=== PATIENT | female | born 1980 | race Caucasian/White ===

== ENCOUNTER 2018-02-15 20:51 | Emergency (ER) | payer SELFPAY ==
[2018-02-15 22:06] LABS: #Basophils 0.1 thou/uL (0.0-0.2); #Eosinphils 0.2 thou/uL (0.0-0.7); #Lymphocytes 2.8 thou/uL (1.20-3.40); #Monocytes 0.6 thou/uL (0.11-0.59); #Neutrophils 7.6 thou/uL (1.40-6.50); %Basophils 0.7 % (0.0-1.0); %Eosinophils 1.4 % (0.0-10.0); %Lymphocytes 24.8 % (21.0-51.0); %Monocytes 4.9 % (0.0-10.0); %Neutrophils 68.2 % (42.0-75.0); Mean Corpuscular HGB CONC 32.7 g/dL (32.0-36.0); Mean Corpuscular Volume 82.5 fL (78.0-98.0); Mean Platelet Volume 8.2 fL (7.4-10.4); Platelet Count 242 thou/uL (130-400); Red Blood Cell (RBC) Count 4.79 mill/uL (4.20-5.40); White Blood Cell (WBC) Count 11.2 thou/uL (4.8-10.8)
[2018-02-15 22:17] LABS: Bilirubin Negative (Negative); Blood, Urine Small (Negative); Clarity CLEAR (Clear); Glucose, Urine (Dipstick) Negative (Negative); Leukocyte Negative (Negative); Nitrite Negative (Negative); Protein, Urine (Dipstick) Negative (Neg-Trace); Specific Gravity, Urine 1.005 (1.002-1.036); Urobilinogen 0.2 mg/dL (0.2-1.0); pH, Urine 5.5 (5.0-9.0)
[2018-02-15 22:20] LABS: Bacteria/HPF None Seen HPF (None Seen); Hyaline Casts/LPF 0-3 HYALINE CAST LPF (0-3 Hyaline); Pathc Cast-AUWi Flag 0.14 (0-2.49); Squamous Epithelial 0-3 HPF (0-3); WBC/HPF None Seen HPF (0-3)
== END 2018-02-15 23:03 | disposition home or self-care (01) ==
LOC: ERS 20:51
DX: O20.9 Hemorrhage in early pregnancy, unspecified (principal); O99.331 Smoking (tobacco) complicating pregnancy, first trimester; F17.210 Nicotine dependence, cigarettes, uncomplicated; Z3A.11 11 weeks gestation of pregnancy
CPT/HCPCS: 36415; 81003; 81015; 84702; 85025; 86900; 86901

== ENCOUNTER 2018-04-21 07:51 | Outpatient (CLI) | payer OTHER ==
--- NOTE | 2018-04-21 09:54 | ULT ---
OB ULTRASOUND: History: 37-year-old female with history of high risk . Technique: Multiple longitudinal and transverse images of an intrauterine obtained using a multihertz curvilinear transducer. FINDINGS: Real-time, color flow, and spectral waveform doppler analysis demonstrates a viable intrauterine preg pastora with a fetus in breech presentation. Placenta is posterior. Cervical length measures 4.2 cm. Cardiac activity measures 133 beats/minute. anatomic survey is unremarkable. Intracranial structures, cerebellum, four-chamber heart, stoma ch, kidneys, cord insertion and urinary bladder are unremarkable. The lips, nose, upper and lower ext remities are grossly unremarkable. Three-vessel cord is seen. BIOMETRICS: BPD 47 mm 20 weeks 3 days HC 180 mm 20 weeks 3 days AC 155 mm 20 weeks 5 days FL 33 mm 20 weeks 2 days Composite age: 20 weeks 4 days. Estimated weight is 355 grams (+/- 52 grams). IMPRESSION: Viable IUP. POS: [facility]
== END 2018-04-21 07:52 | disposition home or self-care (01) ==
LOC: BICULT 07:51
PROVIDERS: ATTEND Family Medicine
DX: O09.522 Supervision of elderly multigravida, second trimester (principal); Z3A.20 20 weeks gestation of pregnancy
CPT/HCPCS: 76805

== ENCOUNTER 2018-08-17 10:14 | Inpatient (IN) | payer OTHER ==
[2018-08-17] MEDS ORDERED: CEFAZOLIN 2 GM in Premix Bag 1 BAG IVPB SCH (11:11)
[2018-08-17] MEDS ORDERED: Ondansetron PF 4 MG/2 ML Vial IVP PRN ×3 (11:11→15:43)
[2018-08-17] MEDS ORDERED: Lactated Ringer's 1,000 ML IV SCH ×2 (11:11→13:30)
[2018-08-17] MEDS ORDERED: Bicitra 30 ML UDCUP PO SCH (11:11)
[2018-08-17 11:34] LABS: Hemoglobin 12.1 g/dL (12.0-16.0); Mean Corpuscular HGB CONC 33.6 g/dL (32.0-36.0); Mean Corpuscular Hemoglobin 28.8 pg (27.0-31.0); Mean Corpuscular Volume 85.7 fL (78.0-98.0); Mean Platelet Volume 9.6 fL (7.4-10.4); Platelet Count 195 thou/uL (130-400); RBC Distribution Width 12.9 % (11.5-14.5)
[2018-08-17 11:37] VITALS: BMI 37.4
[2018-08-17] MEDS ORDERED: Oxytocin 10 UNITS/ML VIAL ONE (11:42)
[2018-08-17] MEDS ORDERED: Bicitra 30 ML UDCUP ONE (11:45)
[2018-08-17] MEDS ORDERED: PHENYLEPHRINE-NS 100 MCG/ML 10 ML SYRINGE ONE ×2 (11:48→15:18)
[2018-08-17] MEDS ORDERED: Zolpidem Tartrate 5 MG TAB PO PRN (11:49)
[2018-08-17] MEDS ORDERED: Naloxone HCl 0.4 mg/ml Vial IV PRN (11:49)
[2018-08-17] MEDS ORDERED: L&D-Morphine 4 MG/ML VIAL SLOW IVP PRN (11:49)
[2018-08-17] MEDS ORDERED: diphenhydrAMINE 25 MG CAP PO PRN ×2 (11:49→15:43)
[2018-08-17] MEDS ORDERED: Ondansetron HCl/PF 4 MG/2 ML Vial IVP PRN (11:49)
[2018-08-17] MEDS ORDERED: Meperidine HCl/PF 25 MG/ML VIAL SLOW IVP PRN (11:49)
[2018-08-17] MEDS ORDERED: diphenhydrAMINE 50 MG/ML VIAL IM PRN (11:49)
[2018-08-17] MEDS ORDERED: diphenhydrAMINE 50 MG/ML VIAL IVP PRN (11:49)
[2018-08-17] MEDS ORDERED: Promethazine HCl 25 MG/ML VIAL IM PRN (11:49)
[2018-08-17] MEDS ORDERED: HYDROmorphone 2 MG/ML VIAL SLOW IVP PRN (11:49)
[2018-08-17] MEDS ORDERED: Ketorolac Tromethamine 30 MG/ML VIAL IVP SCH (12:00)
[2018-08-17] MEDS ORDERED: Communication Order-Pharmacy FS SCH (12:00)
[2018-08-17 12:20] LABS: Syphilis Antibody Nonreactive (Nonreactive); Syphilis Antibody Index 0.05 S/CO (<1.00 Non-Reactive)
[2018-08-17 12:26] LABS: HBSAg Index 0.31 S/CO (0-0.99); Hep B Surf Ag Non-Reactive S/CO (NonReactive)
[2018-08-17] MEDS ORDERED: NS / Oxytocin 40 units/1000ml 1,000 ML IV PRN (13:21)
[2018-08-17] MEDS ORDERED: Oxytocin 10 UNITS/ML VIAL IVPB SCH (13:30)
[2018-08-17] MEDS ORDERED: Meperidine HCl/PF 25 MG/ML VIAL ONE (13:48)
[2018-08-17] MEDS: fentaNYL Citrate/PF 2,000 MCG in Sodium Chloride 0.9% 60 ML IV PRN (14:29)
[2018-08-17] MEDS ORDERED: Meperidine HCl/PF 25 MG/ML VIAL IM PRN (15:43)
[2018-08-17] MEDS ORDERED: HYDROcodone/Acetaminophen 5/325 mg Tablet PO PRN ×2 (15:43)
[2018-08-17] MEDS ORDERED: Bisacodyl 10 MG SUPP PR PRN (15:43)
[2018-08-17] MEDS ORDERED: Simethicone Chewable 80 MG TAB PO PRN (15:43)
[2018-08-17] MEDS ORDERED: Lanolin Ointment 7 GM TUBE TOP PRN (15:43)
[2018-08-17] MEDS ORDERED: NS / Oxytocin 40 units/1000ml 1,000 ML IV SCH (15:43)
[2018-08-17] MEDS: Docusate Calcium (SURFAK) 240 MG CAP PO SCH (21:00)
[2018-08-17] MEDS: Ferrous Sulfate 325 MG TAB PO SCH (21:00)
[2018-08-17] MEDS: Ibuprofen 800 MG TAB PO SCH (22:00)
--- NOTE | 2018-08-18 00:33 | OP ---
DATE OF PROCEDURE: 08/17/2018 PREOPERATIVE DIAGNOSES: 1. Term intrauterine . 2. Advanced maternal age. 3. Gestational diabetes mellitus. 4. Heavy tobacco abuse. 5. Previous section x3. 6. Grade 3 placenta on ultrasound. POSTOPERATIVE DIAGNOSES: 1. Term intrauterine . 2. Advanced maternal age. 3. Gestational diabetes mellitus. 4. Heavy tobacco abuse. 5. Previous section x3. 6. Grade 3 placenta on ultrasound. PROCEDURE PERFORMED: Repeat low cervical transverse section. CLINICAL DATA ABSTRACTOR: Dr. Pardo. ANESTHESIA: Spinal. DESCRIPTION OF PROCEDURE: After informed consent was obtained from the patient , she was taken to the operating room, where spinal anesthesia was administered. She was then prepped and draped in the usual sterile fashion. A Pfannenstiel incision was created with a #10 scalpel blade and carried down to the fascia, which was nicked in the midline. Skin bleeders were coagulated with Bovie. The fascial incision was extended transversely with Pavon scissors. The superior fascial segments were grasped with Kochers and elevated, and the underlying rectus muscles were dissected free, first bluntly and then sharply with Pavon scissors. This was repeated with the inferior fascial segment. The rectus muscles were grasped in the midline with a Odell and elevated and then incised in the midline with Pavon scissors. The peritoneum was entered bluntly. The bladder blade was inserted. The vesicouterine serosa was grasped with a hemostat and elevated, and a bladder flap was created with blunt and sharp dissection with the Metzenbaum scissors. Bladder blade was then re-inserted. The uterus was entered in a low transverse fashion with a clean # 10 scalpel blade. Clear amniotic fluid was encountered. vertex was delivered on to the operative field. The remainder of the infant was delivered uneventfully. The oropharynx and nares were bulb suctioned. The cord was clamped x2, and a vigorous female infant was handed off to the staff in attendance. Cord blood was obtained. The placenta was manually extracted. The uterus was exteriorized and freed of clots and debris. The uterus was repaired with a running locking suture of 0 Vicryl in a single full-thickness layer, followed by a second imbricating layer of 0 Vicryl, which also served to repair the bladder flap. [id number] suture x1 was placed in the center of the repaired incision, hemostasis was observed. The abdomen was copiously irrigated with saline. Seprafilm was applied to the repaired uterine incision and the anterior uterine fundus. The uterus was returned to the abdomen, and hemostasis of the incision was again observed. The peritoneum was densely adherent to the rectus muscles and so was not repaired. The fascia was repaired with a running locking suture of 0 PDS in a running fashion. Three interrupted sutures of 0 Vicryl were placed in the subdermal layer to approximate the skin, which was closed with skin parker. Sponge and instrument counts were correct x4. She tolerated the procedure well and suffered no acute complications. She was taken to Recovery in stable condition and the to the nursery in stable condition. Job ID: [id number] [facility]
[2018-08-18] MEDS: fentaNYL Citrate/PF 2,000 MCG in Sodium Chloride 0.9% 60 ML IV PRN (04:45)
[2018-08-18 06:39] LABS: Hemoglobin 10.6 g/dL (12.0-16.0); Mean Platelet Volume 8.9 fL (7.4-10.4); Platelet Count 148 thou/uL (130-400); RBC Distribution Width 12.9 % (11.5-14.5); Red Blood Cell (RBC) Count 3.54 mill/uL (4.20-5.40); White Blood Cell (WBC) Count 11.3 thou/uL (4.8-10.8)
[2018-08-18] MEDS: Ibuprofen 800 MG TAB PO SCH (07:42)
[2018-08-18] MEDS: Ferrous Sulfate 325 MG TAB PO SCH ×2 (08:28→21:00)
[2018-08-18] MEDS ORDERED: Ibuprofen 800 MG TAB PO PRN (09:20)
[2018-08-18] MEDS ORDERED: HYDROcodone/Acetaminophen 5/325 mg Tablet PO PRN ×2 (09:22)
[2018-08-18] MEDS ORDERED: Ketorolac Tromethamine 30 MG/ML VIAL IVP PRN (09:24)
[2018-08-18] MEDS: Prenatal Vitamin 1 TAB PO SCH (09:59)
[2018-08-18] MEDS: Docusate Calcium (SURFAK) 240 MG CAP PO SCH ×2 (09:59→21:27)
[2018-08-18] MEDS: HYDROcodone/Acetaminophen 5/325 mg Tablet PO PRN ×3 (12:36→23:00)
[2018-08-19] MEDS: HYDROcodone/Acetaminophen 5/325 mg Tablet PO PRN ×4 (04:52→20:36)
[2018-08-19] MEDS: Docusate Calcium (SURFAK) 240 MG CAP PO SCH ×2 (08:55→20:36)
[2018-08-19] MEDS: Prenatal Vitamin 1 TAB PO SCH (08:55)
[2018-08-19] MEDS: Ferrous Sulfate 325 MG TAB PO SCH ×2 (08:58→21:02)
[2018-08-19] MEDS ORDERED: Adacel (T-DAP) 0.5 ML SYRINGE IM ONE (17:00)
[2018-08-20] MEDS: HYDROcodone/Acetaminophen 5/325 mg Tablet PO PRN ×3 (04:57→15:18)
[2018-08-20 08:55] VITALS: BP 133/66; TEMP 98.1
[2018-08-20] MEDS: Docusate Calcium (SURFAK) 240 MG CAP PO SCH (10:22)
[2018-08-20] MEDS: Prenatal Vitamin 1 TAB PO SCH (10:22)
[2018-08-20] MEDS: Ferrous Sulfate 325 MG TAB PO SCH (13:25)
== END 2018-08-20 17:40 | disposition home or self-care (01) | DRG 788 ==
LOC: L&D 10:14 → 3SW 15:40
PROVIDERS: ADMIT Family Medicine; ATTEND Family Medicine
PROC: 10D00Z1 Extraction of Products of Conception, Low, Open Approach (ICD-10-PCS; principal; 2018-08-17)
PROC: 3E0P05Z Introduction of Adhesion Barrier into Female Reproductive, Open Approach (ICD-10-PCS; 2018-08-17)
DX: O34.211 Maternal care for low transverse scar from previous cesarean delivery (principal); O24.429 Gestational diabetes mellitus in childbirth, unspecified control; O43.893 Other placental disorders, third trimester; O99.334 Smoking (tobacco) complicating childbirth; F17.210 Nicotine dependence, cigarettes, uncomplicated; Z3A.38 38 weeks gestation of pregnancy; Z37.0 Single live birth
CPT/HCPCS: 36415; 51702; 85027; 86780; 86850; 86900; 86901; 87340; 90715; J0690; J2175; J2590; J3010; J3490

== ENCOUNTER 2019-05-22 11:04 | Emergency (ER) | payer OTHER, SELFPAY ==
[2019-05-22 11:29] LABS: #Eosinphils 0.2 thou/uL (0.0-0.7); #Lymphocytes 1.7 thou/uL (1.20-3.40); #Monocytes 0.2 thou/uL (0.11-0.59); #Neutrophils 4.3 thou/uL (1.40-6.50); %Basophils 0.6 % (0.0-1.0); %Eosinophils 2.6 % (0.0-10.0); %Monocytes 3.8 % (0.0-10.0); Hemoglobin 12.8 g/dL (12.0-16.0); Mean Corpuscular HGB CONC 31.8 g/dL (32.0-36.0); Mean Corpuscular Hemoglobin 26.4 pg (27.0-31.0); Mean Platelet Volume 8.9 fL (7.4-10.4); Platelet Count 246 thou/uL (130-400); Red Blood Cell (RBC) Count 4.85 mill/uL (4.20-5.40); White Blood Cell (WBC) Count 6.4 thou/uL (4.8-10.8)
== END 2019-05-22 12:30 | disposition home or self-care (01) ==
LOC: ERS 11:04
DX: O03.4 Incomplete spontaneous abortion without complication (principal); F17.210 Nicotine dependence, cigarettes, uncomplicated
CPT/HCPCS: 36415; 84702; 85025; 86900; 86901; 99284